=== PATIENT | female | born 1965 | race Caucasian/White ===

== ENCOUNTER → 2023-07-02 | Outpatient (CLI) | payer BC ==
--- NOTE | 2023-07-06 11:30 | MR ---
EXAMINATION TYPE: MR knee RT wo con DATE OF EXAM: 07/02/2023 COMPARISON: None HISTORY: Right knee pain for 2 weeks due to fall. History of surgery. TECHNIQUE: Multiplanar, multisequence imaging of the right knee is performed without IV contrast. FINDINGS: There are postsurgical changes of anterior cruciate ligament reconstruction. The posterior cruciate l igament and both the medial and lateral collateral ligaments are intact. There is no acute fracture there is focal edema in the medial aspect of the posterior medial femoral condyle and in the medial aspect of the medial femoral condyle. There is no joint effusion. There is marked osteoarthritic change of the medial compartment in the with a markedly degenerated me dial meniscus which is displaced medially. There is marked hypertrophic spurring and marked thinning of the articular cartilage and chondromalacia. There is moderate osteoarthritic change of the lateral compartment where there is moderate thinning of the articular cartilage and marked hypertrophic spur ring at the margins. The medial meniscus is intact without evidence of tear. There is osteoarthritic change of the patellofemoral compartment where there is marked hypertrophic s purring and chondromalacia patella of the lateral facet.. IMPRESSION: 1. ACL reconstruction surgery. 2. Mild contusion of the medial femoral condyle without discrete fracture. 3. Marked osteoarthritic change of the medial compartment as described. 4. Moderate osteoarthritic change of patellofemoral compartment and lateral compartment. 5. No lateral meniscal tear or injury of the posterior cruciate ligament or medial or lateral collate ral ligaments.
== END | disposition home or self-care (01) ==
LOC: RADMRIMAIN 20:09
PROVIDERS: ATTEND Orthopaedic Surgery
DX: S80.01XA Contusion of right knee, initial encounter (principal); M17.11 Unilateral primary osteoarthritis, right knee; Z98.890 Other specified postprocedural states

== ENCOUNTER → 2023-08-07 | Outpatient (CLI) | payer BC ==
[2023-08-07 16:27] LABS: Basophils # (A) 0.03 X 10*3/uL (0.00-0.10); Basophils % (A) 0.5 %; Eosinophils # (A) 0.18 X 10*3/uL (0.04-0.35); Eosinophils % (A) 3.1 %; HGB 13.6 g/dL (12.0-15.0); Lymphocytes # (A) 1.52 X 10*3/uL (0.90-5.00); Lymphocytes % (A) 25.8 %; MCH 29.4 pg (27.0-32.0); MCHC 32.4 g/dL (32.0-37.0); MCV 90.9 FL (80.0-97.0); Mean Platelet Volume 9.8 FL (9.5-12.2); Monocytes # (A) 0.56 X 10*3/uL (0.20-1.00); Monocytes % (A) 9.5 %; NRBC Per 100 WBC 0 X 10*3/uL (0.00-0.01); Neutrophils # (A) 3.59 X 10*3/uL (1.80-7.70); Neutrophils % (A) 60.8 %; Platelet Count 231 X 10*3/uL (140-440); RBC 4.62 X 10*6/uL (4.10-5.20)
[2023-08-07 17:41] LABS: Anion Gap 11.8 mmol/L (4.00-12.00); Carbon Dioxide 23.2 mmol/L (21.6-31.8); Potassium 4.7 mmol/L (3.5-5.5)
== END | disposition home or self-care (01) ==
LOC: LABPAT 07:55
PROVIDERS: ATTEND Orthopaedic Surgery
DX: Z01.812 Encounter for preprocedural laboratory examination (principal); M23.91 Unspecified internal derangement of right knee
CPT/HCPCS: 36415; 80051; 85025; 93005

== ENCOUNTER 2023-08-14 06:09 | Day surgery (SDC) | payer BC ==
--- NOTE | 2023-08-14 01:07 | HP ---
HISTORY AND PHYSICAL DATE OF SURGERY: 08/14/2023. HISTORY OF PRESENT ILLNESS: Nilsa Milligan is a 57-year-old patient seen with progressive right knee pain. We discussed options for treatment. She elected to proceed with right knee arthroscopy. Consent regarding the procedure was obtained. PAST MEDICAL HISTORY: Hypertension, hyperlipidemia, wga-prrewyp-brcqsgctv diabetes. PAST SURGICAL HISTORY: Knee arthroscopy. DAILY MEDICATIONS: 1. Atorvastatin. 2. Lisinopril. 3. Metformin. 4. Mounjaro. 5. Omeprazole. 6. Ibuprofen. ALLERGIES: None. SOCIAL HISTORY: She denies tobacco use. PHYSICAL EVALUATION OF THE RIGHT KNEE: Range of motion is -3/4 to 90 degrees. Mild to moderate effusion. Tenderness, medial and lateral joint line. Positive medial Emma's. Ligaments stable. Hip rotation without pain. Distal neurovascular exam intact. IMAGING STUDIES: Radiographs of the right knee revealed moderate medial compartment osteoarthritis. MRI of right knee revealed a complex medial meniscal tear along with osteoarthritic changes. IMPRESSION: 1. Internal derangement of right knee with medial meniscal tear. 2. Right knee osteoarthritis. 3. Hypertension. 4. Hyperlipidemia. 5. Yqd-jfvevvc-satoesswi diabetes. PLAN: Right knee arthroscopy with partial medial meniscectomy and debridement. MMODL / IJN: [id number] /
[2023-08-14] MEDS ORDERED: DEXAMETHASONE SOD PHOSPHATE 4 MG/ML 1 ML VIAL IVP ONE (07:00)
[2023-08-14] MEDS ORDERED: LACTATED RINGERS 1,000 ML IV ONE (07:00)
[2023-08-14 07:06] LABS: Glucose,Whole Blood 119 mg/dL (70-110)
[2023-08-14] MEDS ORDERED: ONDANSETRON 4 MG/2 ML VIAL ONE (07:07)
[2023-08-14] MEDS ORDERED: BUPIVACAINE (PF) 0.25% 30 ML VIAL MISCELLANE ONE ×2 (07:14→07:56)
[2023-08-14] MEDS ORDERED: KETOROLAC 15 MG/ML 1 ML VIAL ONE (07:19)
[2023-08-14] MEDS ORDERED: PHENYLEPHRINE 10 MG/ML 5 ML VIAL ONE (07:19)
[2023-08-14] MEDS ORDERED: LIDOCAINE 1% INJ 10MG/ML (20 ML MDV) ONE (07:19)
[2023-08-14] MEDS ORDERED: PROPOFOL 10 MG/ML 20 ML VIAL IV ONE (07:19)
[2023-08-14] MEDS ORDERED: MIDAZOLAM 2 MG/2 ML VIAL ONE (07:19)
[2023-08-14] MEDS ORDERED: fentaNYL (PF) 50 MCG/ML 2 ML AMP ONE (07:19)
[2023-08-14] MEDS ORDERED: SUCCINYLCHOLINE CHLORIDE 200 MG/10 ML VIAL IV ONE (07:19)
--- NOTE | 2023-08-14 08:14 | P.OP ---
Date of Procedure: 08/14/23 Preoperative Diagnosis: Internal derangement right knee Postoperative Diagnosis: 1. Tear medial meniscus and lateral meniscus right knee 2. Grade 4 chondromalacia medial femoral condyle right knee 3. Reactive synovitis medial, lateral and suprapatellar compartments right knee 4. Grade 3 chondromalacia patellofemoral compartment right knee 5. Grade 3 chondromalacia lateral femoral condyle right knee Procedure(s) Performed: 1. Arthroscopic partial medial and lateral meniscectomy right knee 2. Arthroscopic microfracture medial femoral condyle right knee 3. Arthroscopic partial synovectomy medial, lateral and suprapatellar compartments right knee 4. Arthroscopic chondroplasty lateral femoral condyle right knee 5. Arthroscopic chondroplasty patellofemoral compartment right knee Anesthesia: SEAN, local Surgeon: Bulmaro Jacobo Estimated Blood Loss (ml): 7 Pathology: none sent Condition: stable Disposition: PACU Indications for Procedure: 57-year-old patient who was seen with progressive right knee pain. After having treatment options discussed, she elected to proceed with arthroscopy. Operative Findings: See description of procedure Description of Procedure: Patient was taken to the operative suite. Patient underwent a general anesthetic by the department of anesthesia. Patient was given preoperative antibiotics. The right lower extremity was placed in a well-padded arthroscopic leg davis. The right leg was prepped and draped in the normal sterile orthopedic fashion. A lateral parapatellar and suprapatellar incision was made. Trochars were inserted. Arthroscopy was initiated. Suprapatellar pouch revealed diffuse thick reactive synovitis. The patellofemoral joint appeared to articulate congruently. There was grade 3 chondromalacia involving the patella and femoral sulcus with diffuse osteochondral tears present. The scope was guided into the medial gutter. No loose bodies or plica were identified. The scope was then guided into the medial compartment. A medial parapatellar incision was made. Trocar inserted followed by probe. There was a complex tear involving the posterior horn medial meniscus. There were grade 3/4 chondromalacia changes of the medial femoral condyle with some osteochondral flap tears present. There were grade 2/3 chondromalacia changes of the medial tibial plateau without tears. There was thick reactive synovitis anteriorly. I performed a partial medial meniscectomy getting down to stable meniscal tissue. I performed a chondroplasty of the medial femoral condyle getting down to stable osteochondral tissue. I performed a partial synovectomy decompressing the reactive synovitis anteriorly. I did note an area of exposed bone/grade 4 chondromalacia involving the weightbearing surface of the medial femoral condyle measuring about 1.5 cm in diameter. I introduced a microfracture awl and performed a microfracture to that area penetrating the bone with resultant bleeding at the microfracture site. The residual meniscus was stable. The residual osteochondral surface was stable. There was good decompression of the synovitis. Scope and probe were then guided into the intercondylar notch. Cruciates were identified, probed and found to be stable. The scope and probe were then guided into lateral compartment. There was a radial tear involving the midbody lateral meniscus. There were grade 2/3 chondromalacia changes of the lateral femoral condyle with large osteochondral flap tears present. There were grade 2 chondromalacia changes of the lateral tibial plateau. There was thick reactive synovitis anteriorly. I performed a partial lateral meniscectomy getting down to stable meniscal tissue. I performed a chondroplasty of the lateral femoral condyle getting down to stable osteochondral tissue. I performed a partial synovectomy decompressing the reactive synovitis. The residual meniscus was stable. The residual osteochondral surface appeared stable. There was good decompression of the synovitis. I did note at this point grade 3 chondromalacia involving the lateral femoral condyle. The scope was in guided back into the suprapatellar compartment. I introduced a motorized shaver into the suprapatellar compartment. I performed a chondroplasty of the patella and femoral sulcus getting down to stable osteochondral tissue. I performed a partial synovectomy. The shaver was removed. The residual oste ochondral surface was stable. I again noted grade 3 chondromalacia of both the patella and femoral sulcus. There was good decompression of the synovitis. Instruments were now removed from the joint. The joint was infiltrated with .25% Marcaine. Steri-Strips were applied to the portal sites. Sterile dressings were applied. The patient was placed into a PEEWEE hose. No tourniquet was utilized. The patient was awakened, transferred to a bed and taken to recovery stable satisfactory condition.
[2023-08-14 08:19] VITALS: TEMP 97
[2023-08-14 08:24] LABS: Glucose,Whole Blood 119 mg/dL (70-110)
[2023-08-14 08:43] VITALS: RESP 16
[2023-08-14] MEDS ORDERED: HYDROcodone/APAP 5-325MG 1 EACH TAB ONE (09:39)
[2023-08-14 10:26] VITALS: BP 153/88
[2023-08-14 10:27] VITALS: PULSE 75
== END 2023-08-14 10:42 | disposition home or self-care (01) ==
LOC: OR 06:09
PROVIDERS: ATTEND Orthopaedic Surgery
DX: S83.281A Other tear of lateral meniscus, current injury, right knee, initial encounter (principal); M94.261 Chondromalacia, right knee; M65.861 Other synovitis and tenosynovitis, right lower leg; I10 Essential (primary) hypertension; E78.5 Hyperlipidemia, unspecified; E11.9 Type 2 diabetes mellitus without complications; Z79.899 Other long term (current) drug therapy; Z79.84 Long term (current) use of oral hypoglycemic drugs; X58.XXXA Exposure to other specified factors, initial encounter
CPT/HCPCS: 29880; 29879; J2250; J0330; J1100; J0690; J2405; J2001; J3010; J1885; J2704; J2371; J0665

== ENCOUNTER → 2025-03-08 | Outpatient (CLI) | payer BC ==
[2025-03-08 15:12] LABS: Basophils # (A) 0.06 X 10*3/uL (0.00-0.10); Eosinophils # (A) 0.19 X 10*3/uL (0.04-0.35); Eosinophils % (A) 3.1 %; HCT 41.6 % (37.2-46.3); HGB 13.2 g/dL (12.0-15.0); Lymphocytes # (A) 1.85 X 10*3/uL (0.90-5.00); Lymphocytes % (A) 30.3 %; MCHC 31.7 g/dL (32.0-37.0); MCV 91.4 FL (80.0-97.0); Mean Platelet Volume 9.7 FL (9.5-12.2); Monocytes # (A) 0.57 X 10*3/uL (0.20-1.00); Monocytes % (A) 9.3 %; NRBC Per 100 WBC 0 X 10*3/uL (0.00-0.01); Neutrophils # (A) 3.41 X 10*3/uL (1.80-7.70); Neutrophils % (A) 55.8 %; Platelet Count 241 X 10*3/uL (140-440); RBC 4.55 X 10*6/uL (4.10-5.20); RDW 12.9 % (11.5-14.5); WBC 6.11 X 10*3/uL (4.50-10.00)
[2025-03-08 15:17] LABS: Blood Urea Nitrogen 20.7 mg/dL (9.0-27.0); Calcium 9.6 mg/dL (8.7-10.3); Carbon Dioxide 22.3 mmol/L (21.6-31.8); Chloride 106 mmol/L (96-109); Glucose 125 mg/dL (70-110); Potassium 4.7 mmol/L (3.5-5.5); Sodium 141 mmol/L (135-145)
[2025-03-08 15:28] LABS: INR <0.93 sec (0.93-1.11); Prothrombin Time 10.4 sec (9.9-11.9)
== END | disposition home or self-care (01) ==
LOC: LABWHC1 10:08
PROVIDERS: ATTEND Orthopaedic Surgery
DX: Z01.818 Encounter for other preprocedural examination (principal); M17.11 Unilateral primary osteoarthritis, right knee; Z22.322 Carrier or suspected carrier of Methicillin resistant Staphylococcus aureus
CPT/HCPCS: 36415; 80048; 85025; 85610; 87070; 93005

== ENCOUNTER 2025-03-21 05:41 | Day surgery (SDC) | payer BC ==
[2025-03-15 11:43] VITALS: BMI 45.4
--- NOTE | 2025-03-20 10:18 | HP ---
HISTORY AND PHYSICAL DATE OF SURGERY: 03/21/2025. HISTORY OF PRESENT ILLNESS: Nilsa Milligan is a 59-year-old patient, who was seen with symptomatic right knee osteoarthritis. We discussed options regarding treatment. She undergoes right total knee arthroplasty. Consent was obtained. PAST MEDICAL HISTORY: Hypertension, hyperlipidemia, and hid-jjwbsnn-dpsukmhxx diabetes. PAST SURGICAL HISTORY: Right knee arthroscopy. MEDICATIONS: 1. Aspirin. 2. Atorvastatin. 3. Lisinopril. 4. Metformin. 5. Mounjaro. 6. Omeprazole. ALLERGIES: None. SOCIAL HISTORY: She denies tobacco use. PHYSICAL EVALUATION OF THE RIGHT KNEE: Range of motion is -7 to 100 degrees. Mild effusion. Tenderness, medial joint line. Crepitance along the medial patellofemoral compartments with range of motion. Pain with patellofemoral compression. Ligaments stable. Hip rotation without pain. Distal neurovascular exam is intact. RADIOGRAPHS: Right knee revealed severe osteoarthritic changes. IMPRESSION: 1. Right knee osteoarthritis. 2. Hypertension. 3. Hyperlipidemia. 4. Oxo-lsndyna-ykqcbpnlb diabetes. PLAN: Right total knee arthroplasty. MMODL / IJN: [id number] /
[~2025-03-21 05:41] MED LIST: TRANEXAMIC 1,000 MG/100ML-NACL 1,000 MG in SALINE 1 100ML.BAG IVPB PRN
[2025-03-21] MEDS: IV FLUID CONTINUATION 1,000 ML IV ONE (06:27)
[2025-03-21 06:45] LABS: Glucose,Whole Blood 131 mg/dL (70-110)
[2025-03-21] MEDS: MELOXICAM 7.5 MG TAB PO PRN (06:52)
[2025-03-21] MEDS: LACTATED RINGERS 1,000 ML IV SCH (06:52)
[2025-03-21] MEDS: ACETAMINOPHEN TAB 500 MG TAB PO PRN (06:52)
[2025-03-21] MEDS: DEXAMETHASONE SOD PHOSPHATE 4 MG/ML 1 ML VIAL IV ONE (06:53)
[2025-03-21] MEDS: ONDANSETRON 4 MG/2 ML VIAL IVP ONE (06:53)
[2025-03-21] MEDS: fentaNYL (PF) 50 MCG/ML 2 ML AMP IVP STA (06:59)
[2025-03-21] MEDS: MIDAZOLAM 2 MG/2 ML VIAL IV ONE (06:59)
[2025-03-21] MEDS ORDERED: SUCCINYLCHOLINE CHLORIDE 200 MG/10 ML VIAL IV ONE (07:26)
[2025-03-21] MEDS ORDERED: PROPOFOL 10 MG/ML 20 ML VIAL IV ONE (07:26)
[2025-03-21] MEDS ORDERED: MIDAZOLAM 2 MG/2 ML VIAL ONE (07:26)
[2025-03-21] MEDS ORDERED: DEXAMETHASONE SOD PHOSPHATE 4 MG/ML 1 ML VIAL ONE (07:26)
[2025-03-21] MEDS ORDERED: ROCURONIUM 10 MG/ML (5 ML VIAL) IV ONE (07:26)
[2025-03-21] MEDS ORDERED: SODIUM CHLORIDE 0.9% (PF) 10 ML VIAL ONE (07:26)
[2025-03-21] MEDS ORDERED: NEOSTIGMINE 1 MG/ML 10 ML VIAL ONE (07:26)
[2025-03-21] MEDS ORDERED: ROPIVACAINE 5 MG/ML 30 ML VIAL ONE (07:26)
[2025-03-21] MEDS ORDERED: LIDOCAINE 1% INJ 10MG/ML (20 ML MDV) ONE (07:26)
[2025-03-21] MEDS ORDERED: GLYCOPYRROLATE 0.2 MG/ML 2 ML VIAL ONE (07:26)
[2025-03-21] MEDS ORDERED: TRANEXAMIC 1,000 MG/100ML-NACL PREMIX BAG ONE (07:26)
[2025-03-21] MEDS ORDERED: fentaNYL (PF) 50 MCG/ML 2 ML AMP ONE (07:26)
[2025-03-21] MEDS: ceFAZolin 2 GM in DEXTROSE 5% IN WATER 50 ML IVPB PRN (07:29)
[2025-03-21] MEDS: ceFAZolin 1,000 MG in SODIUM CHLORIDE 0.9% 1,000 ML IRRIGATION ONE (07:53)
[2025-03-21] MEDS ORDERED: NALOXONE 0.4 MG/ML 1 ML VIAL IV PRN (09:18)
[2025-03-21] MEDS ORDERED: HYDROmorphone 0.5 MG/0.5 ML SYRINGE IVP PRN ×2 (09:18)
[2025-03-21] MEDS ORDERED: HYDROcodone/APAP 5-325MG 1 EACH TAB PO PRN (09:18)
[2025-03-21] MEDS ORDERED: HYDROmorphone 1 MG/ML 1 ML SYRINGE IVP PRN (09:18)
[2025-03-21] MEDS ORDERED: ONDANSETRON 4 MG/2 ML VIAL IVP PRN (09:18)
--- NOTE | 2025-03-21 09:18 | P.OP ---
Date of Procedure: 03/21/25 Preoperative Diagnosis: Right knee osteoarthritis Postoperative Diagnosis: Right knee osteoarthritis Procedure(s) Performed: Right total knee arthroplasty Implants: 1. DePuy attune size 6 narrow right cruciate retaining cemented femur 2. DePuy attune size 6 fixed-bearing cemented tibial baseplate 3. DePuy attune size 6 fixed-bearing cruciate retaining 5 mm polyethylene tibial insert 4. DePuy attune 38 mm all polyethylene cemented patella Anesthesia: GETA, local (Adductor canal catheter, iPAQ block) Surgeon: Bulmaro Jacobo Demo Specialist #1: Cedric King Estimated Blood Loss (ml): 45 Pathology: none sent Condition: stable Disposition: PACU Indications for Procedure: 59-year-old patient seen with symptomatic right knee osteoarthritis. After having treatment options discussed, she elected to proceed with total knee arthroplasty. Operative Findings: See description of procedure. Description of Procedure: Patient was taken to the operative suite after having an adductor canal catheter placed by the department of anesthesia. Patient underwent a general anesthetic by the department of anesthesia. Patient was given preoperative IV intake antibiotics and TXA. A well-padded tourniquet was placed about the right lower extremity. The lower extremity was then prepped and draped in the normal sterile orthopedic fashion. The extremity was elevated, a tourniquet was insufflated to 300. A standard anterior incision was made sharply through skin. Dissection was taken down through the subcutaneous soft tissues down to the extensor mechanism. A medial arthrotomy was performed, patella was everted and knee was flexed. There was advanced osteoarthritis noted. I introduced my distal intramedullary femoral drill. I then introduced the distal femoral cu tting jig. Hammad ACEVEDO secured the cutting jig with 2 pins. I held retractors in position while Hammad ACEVEDO performed the distal femoral resection through the guide area we now removed her distal femoral cutting guide. We now placed our 4-in-1 femoral cutting block and positioned and it was secured with 2 pins by Hammad ACEVEDO while I held the block in position. The distal femoral finishing was now completed. A proximal tibial cutting guide was positioned. I held the guide in the appropriate position with both hands well Hammad ACEVEDO inserted stabilizing pins into the guide. Proximal tibial cut was made. We now placed a trial femoral component into position, along with an appropriate size tibial tray and insert. We now took the knee through range of motion and had full extension good flexion and good overall soft tissue balance noted. The patella was everted and stabilized with 2 towel clips held by Hammad ACEVEDO while I performed a flush with patellar quad tendon utilizing a fresh sawblade. We templated the patella, appropriate drill holes were made. An appropriate trial patella was positioned, knee was taken through full range of motion with the patella tracking very nicely. The trial patella was removed. Drill holes were made through the femoral component. All trial components were removed after marking off the appropriate rotation of the tibia. Retractors were now positioned along the proximal tibia. An appropriate keel punch was made with the appropriate size tibial guide by myself on Hammad ACEVEDO assisted by holding retractors. At this point appropriate size implants were chosen and opened. The joint was irrigated copiously with pulse lavage mechanical irrigation. The wound was irrigated with pulse lavage mechanical irrigation. We mixed antibiotic methylmethacrylate. We placed the knee into flexion. We placed multiple retractors assisted by Hammad ACEEVDO to expose the proximal tibia. Once the methyl methacrylate was ready, the tibial component was cemented into place removing any excess methylmethacrylate form by both myself and Hammad ACEVEDO. The femoral component was cemented into place removing the removing any excess methylmethacrylate performed by both myself and Hammad ACEVEDO. We then inserted the appropriate size polyethylene tibial insert. We made sure that it was locked into position. We took the knee into full extension, and then back in a flexion making sure we had removed any excess methylmethacrylate. The patellar component was then cemented down and secured with clamp. Excess methylmethacrylate removed. We kept the knee in full extension, patellar clamp in position until methylmethacrylate had hardened. Once it had hardened the patellar clamp was removed. The knee was taken through full range of motion. The patella tracked nicely. There was good soft tissue balancing. The tourniquet was now released. Additional hemostasis was achieved via electrocautery. A second gram of TXA was given. The wound again was irrigated with pulse lavage mechanical irrigation. The extensor mechanism was repaired with Ethibond suture. We checked the repair with range of motion and it was stable. The subcutaneous soft tissues were repaired with Vicryl in layers. The skin was approximated with pernio/Dermabond. Sterile dressings were applied followed by loose web roll and Koby bandage. The patient was transferred to a bed, and taken to recovery in stable and satisfactory condition. Hammad ACEVEDO assisted with this complex procedure.
[2025-03-21 09:31] VITALS: TEMP 97
[2025-03-21] MEDS: ROPIVACAINE 1,100 MG, SODIUM CHLORIDE 0.9% 500 ML 330 ML, EMPTY PAIN BALL 1 EACH MISCELLANE PRN (09:37)
[2025-03-21] MEDS: HYDROmorphone 0.5 MG/0.5 ML SYRINGE IVP PRN (10:01)
[2025-03-21] MEDS: LACTATED RINGERS 1,000 ML IV ONE ×2 (10:28→10:29)
[2025-03-21 10:32] LABS: Glucose,Whole Blood 178 mg/dL (70-110)
--- NOTE | 2025-03-21 10:34 | XR ---
EXAMINATION TYPE: XR knee limited RT DATE OF EXAM: 03/21/2025 10:06 AM COMPARISON: None. CLINICAL INDICATION: Female, 59 years old with history of Evaluation for Postop abnormality and align ment, pain TECHNIQUE: 2 view(s) obtained. FINDINGS: Femoral and tibial knee component prostheses are present. No acute fractures are evident. Postsurgica l soft tissue changes evident. IMPRESSION: 1. No acute fractures post knee replacement. [facility], , 03/21/2025 10:32 AM
[2025-03-21] MEDS: HYDROcodone/APAP 7.5-325MG 1 EACH TAB PO PRN (10:54)
[2025-03-21 12:49] VITALS: BP 142/87; PULSE 92; RESP 16
--- NOTE | 2025-03-21 13:20 | P.ANPRN ---
Procedure Note - Anesthesia - Nerve Block Performed Right Adductor Canal Infusion Time Out Performed: Yes (0659) Date of Procedure: 03/21/25 Procedure Start Time: 07:00 Procedure Stop Time: 07:05 Location of Patient: PreOp Indication: Acute Post-Operative Pain, Requested by Surgeon Specifically requested for management of pain by DrDemetra: Bulmaro Jacobo Sedation Type: Sedate with meaningful contact maintained Preparation: Sterile Prep, Sterile Dressing Position: Supine Catheter Depth at Skin (cm): 7 Catheter: Indwelling Needle Types: Pajunk Needle Gauge: 18 Ultrasound used to visualize needle placement: Yes Ultrasound used to observe medication spread: Yes Injectate: 0.5% Ropivacaine (see comment for volume) (15CC+10CC NACL PF+DECADRON 4MG) Blood Aspirated: No Pain Paresthesia on Injection Noted: No Resistance on Injection: Normal Image Stored and Saved: Yes Events: Uneventful and Well Tolerated
--- NOTE | 2025-03-21 13:21 | P.ANPRN ---
Procedure Note - Anesthesia - Nerve Block Performed Right iPack Single Time Out Performed: Yes (0659) Date of Procedure: 03/21/25 Procedure Start Time: : Procedure Stop Time: 07:10 Indication: Acute Post-Operative Pain, Requested by Surgeon Specifically requested for management of pain by DrDemetra: Bulmaro Jacobo Sedation Type: Sedate with meaningful contact maintained Preparation: Sterile Prep Position: Supine Catheter: None Needle Types: Pajunk Needle Gauge: 21 Ultrasound used to visualize needle placement: Yes Ultrasound used to observe medication spread: Yes Injectate: 0.5% Ropivacaine (see comment for volume) (15CC+DECADRON 4MG+NACL PF 10CC) Blood Aspirated: No Pain Paresthesia on Injection Noted: No Resistance on Injection: Normal Image Stored and Saved: Yes Events: Uneventful and Well Tolerated
== END 2025-03-21 13:45 | disposition home health service (06) ==
LOC: OR 05:41
PROVIDERS: ATTEND Orthopaedic Surgery
DX: M17.11 Unilateral primary osteoarthritis, right knee (principal); G89.18 Other acute postprocedural pain; E11.9 Type 2 diabetes mellitus without complications; E78.5 Hyperlipidemia, unspecified; I10 Essential (primary) hypertension; Z79.84 Long term (current) use of oral hypoglycemic drugs; Z96.651 Presence of right artificial knee joint; Z79.82 Long term (current) use of aspirin; Z79.85 Long-term (current) use of injectable non-insulin antidiabetic drugs
CPT/HCPCS: 97161; 64448; 64473; 73560; 27447; C1776; C1713 ×2; C1751; J2250; J0330; J1100; J2710; J0690 ×2; J2405; J2003; J3010; J2795; J2704; J1171; J1596

== ENCOUNTER 2025-03-28 12:39 | Emergency (ER) | payer BC ==
[2025-03-28] MEDS: SODIUM CHLORIDE 0.9% 1,000 ML IV STA (13:00)
--- NOTE | 2025-03-28 13:59 | ED ---
Syncope HPI - General Chief Complaint: Syncope Stated Complaint: Syncope Time Seen by Provider: 03/28/25 12:41 Source: patient, RN notes reviewed Mode of arrival: EMS Limitations: no limitations - History of Present Illness Initial Comments: This is a 59-year-old female who presents to the emergency department for a syncopal episode. Patient had a right knee replacement with Dr. Jacobo 1 week ago. States that since then she has had 4 syncopal episodes. Today's occurred after physical therapy. However, she was seated at the time. She started to feel dizzy and generally unwell before "blacking out". Denies sustaining any injuries during this event. Her states that she seemed like she was in and out for about 5 minutes when this occurred. Denies any chest pain or shortness of breath. States that she currently feels fine. She h as had syncopal episodes prior to the knee replacement, but states that it had been many years and she did not usually have them this frequently. - Related Data Home Medications Medication Instructions Recorded Confirmed Atorvastatin [Lipitor] 10 mg PO HS 10/22/16 03/28/25 Multivitamins, Thera [Multivitamin 1 tab PO DAILY 03/15/25 03/28/25 (formulary)] Omeprazole Magnesium [PriLOSEC OTC] 20 mg PO QAM 03/15/25 03/28/25 Tirzepatide [Mounjaro] 10 mg SQ TU 03/15/25 03/28/25 Acetaminophen Tab [Tylenol Tab] 1,000 mg PO Q6HR PRN 03/28/25 03/28/25 HYDROcodone/APAP 7.5-325MG [Morrill 1 tab PO Q4HR PRN 03/28/25 03/28/25 7.5] Pregabalin [Lyrica] See Taper PO DIRECTED 03/28/25 03/28/25 Sennosides/Docusate Sodium 2 tab PO DAILY PRN 03/28/25 03/28/25 [Senna-S 8.6-50 mg Tablet] lisinopriL [Zestril] 10 mg PO DAILY 03/28/25 03/28/25 metFORMIN HCL ER [Glucophage XR] 1,000 mg PO BID 03/28/25 03/28/25 Previous Rx's Medication Instructions Recorded Aspirin [Adult Low Dose Aspirin EC] 81 mg PO BID #60 tab 03/21/25 Allergies Allergy/AdvReac Type Severity Reaction Status Date / Time No Known Allergies Allergy Verified 03/28/25 15:10 Review of Systems ROS Statement: Those systems with pertinent positive or pertinent negative responses have been documented in the HPI. ROS Other: All systems not noted in ROS Statement are negative. Past Medical History Past Medical History: Diabetes Mellitus, GERD/Reflux, Hearing Disorder / Deafness, Osteoarthritis (OA) Additional Past Medical History / Comment(s): Hard of hearing in left ear. "On Lipitor and Lisinopril for Diabetes". Varicose veins. History of Any Multi-Drug Resistant Organisms: None Reported Past Surgical History: Cholecystectomy, Orthopedic Surgery Additional Past Surgical History / Comment(s): Right knee surgery X2, eye surgery as a child, oral/jaw surgery in high school. Past Anesthesia/Blood Transfusion Reactions: Unable to Obtain Additional Past Anesthesia/Blood Transfusion Reaction / Comment(s): Thinks may have had a blood transfusion with jaw surgery, but unsure. Past Psychological History: No Psychological Hx Reported Smoking Status: Never smoker Past Alcohol Use History: Occasional Past Drug Use History: None Reported - Past Family History Father Family Medical History: Cancer Sister(s) Family Medical History: Cancer Brother(s) Family Medical History: Myocardial Infarction (VT) General Exam Limitations: no limitations General appearance: alert, in no apparent distress Head exam: Present: atraumatic, normocephalic, normal inspection Eye exam: Present: normal appearance, PERRL, EOMI. Absent: scleral icterus, conjunctival injection, periorbital swelling Respiratory exam: Present: normal lung sounds bilaterally. Absent: respiratory distress, wheezes, rales, rhonchi, stridor Cardiovascular Exam: Present: regular rate, normal rhythm Neurological exam: Present: alert, oriented X3, CN II-XII intact Psychiatric exam: Present: normal affect, normal mood Skin exam: Present: warm, dry, intact, normal color. Absent: rash Course Vital Signs 03/28/25 03/28/25 03/28/25 12:42 12:50 15:02 Temperature 97.3 F L 97.3 F L Pulse Rate 88 82 93 Pulse Rate [ Record Clerk Salesperson ] Respiratory 18 18 18 Rate Blood Pressure 115/79 115/79 118/73 Blood Pressure [Right Arm Sitting] Blood Pressure [Right Arm Standing] Blood Pressure [Right Arm Supine] O2 Sat by Pulse 98 98 98 Oximetry 03/28/25 03/28/25 03/28/25 16:15 16:17 16:19 Temperature Pulse Rate Pulse Rate [ 85 97 94 Record Clerk Salesperson ] Respiratory Rate Blood Pressure Blood Pressure 117/78 [Right Arm Sitting] Blood Pressure 137/79 [Right Arm Standing] Blood Pressure 113/69 [Right Arm Supine] O2 Sat by Pulse Oximetry 03/28/25 03/28/25 16:41 17:02 Temperature 97.1 F L Pulse Rate 94 90 Pulse Rate [ Record Clerk Salesperson ] Respiratory 16 90 H Rate Blood Pressure 137/94 137/79 Blood Pressure [Right Arm Sitting] Blood Pressure [Right Arm Standing] Blood Pressure [Right Arm Supine] O2 Sat by Pulse 96 Oximetry Medical Decision Making - Medical Decision Making This is a 59-year-old female who presents to the emergency department for a syncopal episode. Was pt. sent in by a medical professional or institution? @ -No Did you speak to anyone other than the patient for history? @ -Her provided the history of how long she was in and out of consciousness for. Did you review nursing and triage notes? @ -Yes, and I agree, it is accurate with regards to the patient's symptoms. Were old charts reviewed? @ -No Differential Diagnosis? @ -Differential Syncope: Valvular disease, hypertrophic cardiomyopathy, pulmonary embolism, tamponade, tachycardia, bradycardia, VT, hypovolemia, hemorrhage, dissection, anemia, intracranial hemorrhage, seizure, hypoglycemia, carbon monoxide poisoning, this is not meant to be an all-inclusive list. EKG interpreted by me (3pts min.)? @ -EKG interpreted by me demonstrating the following: Sinus rhythm. Ventricular rate 77 bpm, W[place] interval 154 ms, QRS duration 89 ms, QTc 397 ms. X-rays interpreted by me (1pt min.)? @ -Chest x-ray obtained, my interpretation identifies no localized consolidations or infiltrates. CT interpreted by me (1pt min.)? @ -CTA of the chest obtained. My interpretation identifies no evidence of a pulmonary embolus. U/S interpreted by me (1pt. min.)? @ -Not obtained What testing was considered but not performed? (CT, X-rays, U/S, labs)? Why? @ -None What meds were considered but not given? Why? @ -None Did you discuss the management of the patient with other professionals? @ -No Did you reconcile home meds? @ -No Was smoking cessation discussed for >3mins.? @ -No Was critical care preformed (if so, how long)? @ -No Were there social determinants of health that impacted care today? How? (Homelessness, low income, unemployed, alcoholism, drug addiction, transportation, low edu. Level, literacy, decrease access to med. care, shelter, rehab)? @ -No Was there de-escalation of care discussed even if they declined? (Discuss DNR or withdrawal of care, Hospice)? @ -No What co-morbidities impacted this encounter? (DM, HTN, Smoking, COPD, CAD, Cancer, CVA, Hep., AIDS, mental health diagnosis, sleep apnea, morbid obesity)? @ -DM, osteoarthritis Was patient admitted / discharged? @ -Discharged. Lab work demonstrates an elevated D-dimer of 7.81, which is expected given her recent postoperative status. Chest x-ray reveals no acute process. CTA of the chest obtained revealing no evidence of a pulmonary embolus. She does have incidental findings of a thoracic aneurysm and enlarged left thyroid lobe. Patient remained asymptomatic in the emergency department. The cause of her symptoms is not clear at this point. It may be related to the postoperative status. She did also note that the physical therapist told her that her BP was low when this occurred and she could have had a vasovagal event. I did offer admission for further evaluation, however patient advised that she would rather go home at this point. Advised strict return parameters and close follow-up with her PCP. She was also made aware of the incidental findings on her CTA that will need close follow-up with her PCP. Patient discharged home in stable condition. Case discussed with ED attending Dr. Florentino. Return precautions reviewed in depth, the patient is instructed to return to the emergency department with any new, worsening, or concerning symptoms. Patient verbalized understanding. Undiagnosed new problem with uncertain prognosis? @ -None Drug Therapy requiring intensive monitoring for toxicity (Heparin, Nitro, Insulin, Cardizem)? @ -None Were any procedures done? @ -None Diagnosis/symptom? @ -Syncope, history of right knee arthroplasty Acute, or Chronic, or Acute on Chronic? @ -Acute Uncomplicated (without systemic symptoms) or Complicated (systemic symptoms)? @ -Uncomplicated Side effects of treatment? @ -None Exacerbation, Progression, or Severe Exacerbation] @ -Not applicable Poses a threat to life or bodily function? @ -Unlikely - Lab Data Result diagrams: 03/28/25 14:04 03/28/25 14:04 Lab Results 03/28/25 03/28/25 03/28/25 Range/Units 14:04 14:04 14:04 WBC 9.25 (4.50-10.00) 10*3/uL RBC 4.22 (4.10-5.20) 10*6/uL Hgb 12.3 (12.0-15.0) g/dL Hct 37.7 (37.2-46.3) % MCV 89.3 (80.0-97.0) fL MCH 29.1 (27.0-32.0) pg MCHC 32.6 (32.0-37.0) g/dL Plt Count 277 (140-440) 10*3/uL MPV 9.0 L (9.5-12.2) fL Immature Gran % (Auto) 1.1 % Neutrophils % 73.8 % Lymphocytes % 14.1 % Monocytes % 8.4 % Eosinophils % 2.1 % Basophils % 0.5 % Immature Gran # 0.10 H (0.00-0.04) 10*3/uL Neutrophils # 6.83 (1.80-7.70) 10*3/uL Lymphocytes # 1.30 (0.90-5.00) 10*3/uL Monocytes # 0.78 (0.20-1.00) 10*3/uL Eosinophils # 0.19 (0.04-0.35) 10*3/uL Basophils # 0.05 (0.00-0.10) 10*3/uL PT 9.9 L (10.0-12.5) sec INR 0.9 (<1.2) APTT 20.0 L (22.0-30.0) sec D-Dimer 7.81 H (<0.60) mg/L FEU Sodium 139 (137-145) mmol/L Potassium 5.2 H (3.5-5.1) mmol/L Chloride 103 (98-107) mmol/L Carbon Dioxide 24 (22-30) mmol/L Anion Gap 12 mmol/L BUN 24 H (7-17) mg/dL Creatinine 0.78 (0.52-1.04) mg/dL Est GFR (CKD-EPI)AfAm >90 (>60 ml/min/1.73 sqM) Est GFR (CKD-EPI)NonAf 84 (>60 ml/min/1.73 sqM) Glucose 124 H (74-99) mg/dL Calcium 9.9 (8.4-10.2) mg/dL Magnesium 1.8 (1.6-2.3) mg/dL Total Bilirubin 0.8 (0.2-1.3) mg/dL AST 33 (14-36) U/L ALT 28 (4-34) U/L Alkaline Phosphatase 95 (38-126) U/L Troponin I (0.000-0.034) ng/mL Total Protein 6.9 (6.3-8.2) g/dL Albumin 4.1 (3.5-5.0) g/dL 03/28/25 Range/Units 14:04 WBC (4.50-10.00) 10*3/uL RBC (4.10-5.20) 10*6/uL Hgb (12.0-15.0) g/dL Hct (37.2-46.3) % MCV (80.0-97.0) fL MCH (27.0-32.0) pg MCHC (32.0-37.0) g/dL Plt Count (140-440) 10*3/uL MPV (9.5-12.2) fL Immature Gran % (Auto) % Neutrophils % % Lymphocytes % % Monocytes % % Eosinophils % % Basophils % % Immature Gran # (0.00-0.04) 10*3/uL Neutrophils # (1.80-7.70) 10*3/uL Lymphocytes # (0.90-5.00) 10*3/uL Monocytes # (0.20-1.00) 10*3/uL Eosinophils # (0.04-0.35) 10*3/uL Basophils # (0.00-0.10) 10*3/uL PT (10.0-12.5) sec INR (<1.2) APTT (22.0-30.0) sec D-Dimer (<0.60) mg/L FEU Sodium (137-145) mmol/L Potassium (3.5-5.1) mmol/L Chloride (98-107) mmol/L Carbon Dioxide (22-30) mmol/L Anion Gap mmol/L BUN (7-17) mg/dL Creatinine (0.52-1.04) mg/dL Est GFR (CKD-EPI)AfAm (>60 ml/min/1.73 sqM) Est GFR (CKD-EPI)NonAf (>60 ml/min/1.73 sqM) Glucose (74-99) mg/dL Calcium (8.4-10.2) mg/dL Magnesium (1.6-2.3) mg/dL Total Bilirubin (0.2-1.3) mg/dL AST (14-36) U/L ALT (4-34) U/L Alkaline Phosphatase (38-126) U/L Troponin I <0.012 (0.000-0.034) ng/mL Total Protein (6.3-8.2) g/dL Albumin (3.5-5.0) g/dL - Radiology Data Radiology results: report reviewed, image reviewed Disposition Clinical Impression: Syncope, History of arthroplasty of right knee Disposition: HOME SELF-CARE Instructions (If sedation given, give patient instructions): Syncope (ED) Additional Instructions: Return to the emergency department with any new, worsening, or concerning sym ptoms. Follow up with your primary care provider in 1-2 days. Is patient prescribed a controlled substance at d/c from ED?: No Referrals: Kathleen Xie MD [Primary Care Provider] - 1-2 days Time of Disposition: 16:43
--- NOTE | 2025-03-28 14:08 | XR ---
EXAMINATION TYPE: XR chest 2V DATE OF EXAM: 03/28/2025 1:51 PM COMPARISON: None. CLINICAL INDICATION: Female, 59 years old with history of syncope: Shortness of breath TECHNIQUE: XR chest 2V views of the chest are obtained. FINDINGS: Scattered senescent parenchymal changes noted. Hyperinflation compatible with COPD. No evidence for infiltrate. No evidence for atelectasis. Heart size is stable. Mediastinal structures are stable and grossly unremarkable. No evidence for hilar prominence. Degenerative changes dorsal spine. IMPRESSION: 1. No evidence for acute pulmonary disease. [facility], , 03/28/2025 2:06 PM
[2025-03-28 14:09] LABS: Basophils # (A) 0.05 10*3/uL (0.00-0.10); Basophils % (A) 0.5 %; Eosinophils # (A) 0.19 10*3/uL (0.04-0.35); Eosinophils % (A) 2.1 %; HCT 37.7 % (37.2-46.3); HGB 12.3 g/dL (12.0-15.0); Lymphocytes % (A) 14.1 %; MCH 29.1 pg (27.0-32.0); MCHC 32.6 g/dL (32.0-37.0); MCV 89.3 fL (80.0-97.0); Monocytes # (A) 0.78 10*3/uL (0.20-1.00); Monocytes % (A) 8.4 %; Neutrophils # (A) 6.83 10*3/uL (1.80-7.70); Neutrophils % (A) 73.8 %; Platelet Count 277 10*3/uL (140-440); RBC 4.22 10*6/uL (4.10-5.20); RDW 12.7 % (11.5-14.5); WBC 9.25 10*3/uL (4.50-10.00)
[2025-03-28] MEDS: HYDROcodone/APAP 7.5-325MG 1 EACH TAB PO ONE (14:11)
[2025-03-28 14:27] LABS: ALT 28 U/L (4-34); African American GFR (CKD) >90 (>60 ml/min/1.73 sqM); Albumin 4.1 g/dL (3.5-5.0); Anion Gap 12 mmol/L; Blood Urea Nitrogen 24 mg/dL (7-17); Calcium 9.9 mg/dL (8.4-10.2); Carbon Dioxide 24 mmol/L (22-30); Chloride 103 mmol/L (98-107); Glucose 124 mg/dL (74-99); Non-African American GFR(CKD) 84 (>60 ml/min/1.73 sqM); Sodium 139 mmol/L (137-145); Total Bilirubin 0.8 mg/dL (0.2-1.3); Total Protein 6.9 g/dL (6.3-8.2)
[2025-03-28 14:28] LABS: AST 33 U/L (14-36); Alkaline Phosphatase 95 U/L (38-126); Magnesium 1.8 mg/dL (1.6-2.3); Potassium 5.2 mmol/L (3.5-5.1)
[2025-03-28 14:44] LABS: INR 0.9 (<1.2); Prothrombin Time 9.9 sec (10.0-12.5)
--- NOTE | 2025-03-28 15:36 | CT ---
EXAMINATION TYPE: CT chest angio for PE CT DLP: 437.6 mGycm, Automated exposure control for dose reduction was used. DATE OF EXAM: 03/28/2025 3:29 PM COMPARISON: Chest radiograph from same day. CLINICAL INDICATION:Female, 59 years old with history of Syncope, elevated d-dimer; Syncope, elevated dimer TECHNIQUE/CONTRAST: CTA scan of the thorax is performed with IV Contrast, patient injected with 100 ml mL of Isovue 370, pulmonary embolism protocol. MIP images are created and reviewed. FINDINGS: Pulmonary Artery: There is no evidence for a filling defect within the pulmonary vasculature to sugge st acute pulmonary embolism. The pulmonary artery is of normal size. Lungs/Pleura: No evidence of focal consolidation, pleural effusion or pneumothorax. Minimal dependent bilateral lower lobe subsegmental atelectasis. No suspicious pulmonary nodule or mass. Airway: Large airways are patent. Heart: Size within normal limits.Trace pericardial effusion. No significant coronary artery calcifica tions. Vasculature: Ectasia of the aortic root measuring 3.9 cm. Ascending fusiform thoracic aortic aneurysm measuring 4.3 cm. The descending thoracic aorta measures up to 2.7 cm. No evidence for dissection. B ovine aortic arch. Mediastinum: No evidence of adenopathy. Musculoskeletal: No acute osseous abnormalities. Minimal multilevel degenerative disc disease. Soft Tissues: Unremarkable. Lower neck: Enlarged heterogenous left thyroid lobe with nodule measured a 5.1 cm with substernal ext ension. Upper Abdomen: Gallbladder is surgically absent. Small hiatal hernia suggested. IMPRESSION: 1. No evidence of pulmonary embolism. 2. Ectasia of the aortic root measuring 3.9 cm with aneurysmal dilatation of the thoracic aorta measu ring up to 4.3 cm. 3. Enlarged left thyroid lobe with heterogenous nodule measuring 5.1 cm. There is substernal extensio n of the left thyroid lobe. Recommend further evaluation with outpatient thyroid ultrasound. [facility], , 03/28/2025 3:33 PM
[2025-03-28 17:04] VITALS: BP 137/79; PULSE 90; RESP 90; TEMP 97.1
== END 2025-03-28 17:04 | disposition home or self-care (01) ==
LOC: EC 12:39
DX: R55 Syncope and collapse (principal); E11.9 Type 2 diabetes mellitus without complications; M19.90 Unspecified osteoarthritis, unspecified site; Z96.651 Presence of right artificial knee joint
CPT/HCPCS: 36415; 93005; 85379; 80053; 83735; 84484; 85025; 85610; 85730; 71046; 71275; 99285; 96360; 96361 ×2; Q9967